=== PATIENT | male | born 1960 ===

== ENCOUNTER 2016-07-31 00:49 | Inpatient (IN) | payer MEDICAID ==
[~2016-07-31] VITALS: Ht 177.8 cm; Wt 90.7 kg
[2016-07-31] MEDS ORDERED: ASPIRIN 81 MG CHEW TAB ONE (01:23)
[2016-07-31] MEDS ORDERED: ACETAMINOPHEN 325 MG TAB PO PRN (03:55)
[2016-07-31] MEDS ORDERED: SALINE FLUSH 10 ML FLUSH PRN (03:55)
[2016-07-31 05:25] VITALS: BMI 28.0
[2016-07-31] MEDS: SODIUM CHLORIDE 0.9% FLUSH BAG 500 ML IV SCH (05:26)
[2016-07-31 05:48] VITALS: BP_SYST 121; RESP 20; TEMP 98.2
[2016-07-31 05:49] VITALS: Ht 177.8 cm; Wt 90.7 kg
[2016-07-31] MEDS: SODIUM CHLORIDE 0.9% 1,000 ML IV SCH ×2 (06:11→22:32)
[2016-07-31 07:49] VITALS: BP_SYST 135; RESP 18; TEMP 97.8
[2016-07-31] MEDS: SALINE FLUSH 10 ML FLUSH SCH ×2 (08:00→19:29)
[2016-07-31] MEDS: Aspirin 325 MG TAB PO SCH (09:29)
[2016-07-31] MEDS: ENOXAPARIN 40 MG/0.4 ML SYR SUBQ SCH (09:30)
[2016-07-31 11:18] VITALS: BP_SYST 131; RESP 18; TEMP 97.7
[2016-07-31 16:06] VITALS: BP_SYST 136; RESP 18; TEMP 97.8
[2016-07-31 19:56] VITALS: BP_SYST 111; RESP 18; TEMP 98.2
[2016-07-31] MEDS: Atorvastatin 20 MG TAB PO SCH (21:00)
[2016-08-01] VITALS (7 sets, daily range): BP systolic 115–137; RESP 18; TEMP 97.3–98.4
[2016-08-01] MEDS: SODIUM CHLORIDE 0.9% FLUSH BAG 500 ML IV SCH (05:07)
[2016-08-01] MEDS: Aspirin 325 MG TAB PO SCH (09:05)
[2016-08-01] MEDS: ENOXAPARIN 40 MG/0.4 ML SYR SUBQ SCH (09:05)
[2016-08-01] MEDS: SALINE FLUSH 10 ML FLUSH SCH ×2 (09:06→19:44)
[2016-08-01] MEDS: Atorvastatin 20 MG TAB PO SCH (21:00)
[2016-08-02 03:31] VITALS: BP_SYST 119; RESP 18; TEMP 97.6
[2016-08-02] MEDS: SODIUM CHLORIDE 0.9% FLUSH BAG 500 ML IV SCH (05:18)
[2016-08-02 07:26] VITALS: BP_SYST 123; RESP 18; TEMP 98.2
[2016-08-02] MEDS: Aspirin 325 MG TAB PO SCH (09:03)
[2016-08-02] MEDS: ENOXAPARIN 40 MG/0.4 ML SYR SUBQ SCH (09:04)
[2016-08-02] MEDS: SALINE FLUSH 10 ML FLUSH SCH ×2 (09:04→19:33)
[2016-08-02 11:12] VITALS: BP_SYST 107; RESP 18; TEMP 97.5
[2016-08-02 15:13] VITALS: BP_SYST 121; RESP 18; TEMP 98.7
[2016-08-02] MEDS ORDERED: OPTIRAY 350 100 ML VIAL HMH IV ONE (16:10)
[2016-08-02 19:29] VITALS: BP_SYST 125; RESP 20; TEMP 97.5
[2016-08-02] MEDS: Atorvastatin 20 MG TAB PO SCH (21:00)
[2016-08-02] MEDS: LEVETIRACETAM 500 MG TAB PO SCH (22:45)
[2016-08-02 22:53] VITALS: BP_SYST 132; RESP 16; TEMP 98.3
[2016-08-03 03:36] VITALS: BP_SYST 123; RESP 18; TEMP 97.9
[2016-08-03] MEDS: SODIUM CHLORIDE 0.9% FLUSH BAG 500 ML IV SCH (06:00)
[2016-08-03] MEDS: SALINE FLUSH 10 ML FLUSH SCH (08:07)
[2016-08-03] MEDS: ENOXAPARIN 40 MG/0.4 ML SYR SUBQ SCH (08:07)
[2016-08-03] MEDS: Aspirin 325 MG TAB PO SCH (08:07)
[2016-08-03] MEDS: LEVETIRACETAM 500 MG TAB PO SCH (08:08)
[2016-08-03 08:38] VITALS: BP_SYST 115; RESP 18; TEMP 97.6
[2016-08-03 12:09] VITALS: BP_SYST 134; RESP 19; TEMP 98
[2016-08-03 13:16] VITALS: BP_SYST 134; RESP 19; TEMP 98
== END 2016-08-03 14:21 | disposition home or self-care (01) | DRG 69 ==
LOC: ER 00:49 → EMR 03:54 → ENPENDDIS 03:54 → PCU 05:21
PROVIDERS: ADMIT Family Medicine; ATTEND Family Medicine
DX: G45.9 Transient cerebral ischemic attack, unspecified (principal); I10 Essential (primary) hypertension; G40.109 Localization-related (focal) (partial) symptomatic epilepsy and epileptic syndromes with simple partial seizures, not intractable, without status epilepticus; Z86.73 Personal history of transient ischemic attack (TIA), and cerebral infarction without residual deficits; E78.5 Hyperlipidemia, unspecified; R73.9 Hyperglycemia, unspecified; Z87.891 Personal history of nicotine dependence
CPT/HCPCS: 36415; 70450; 70496; 70498; 70551; 71010; 80047; 80048; 80053; 80061; 81001; 81003; 82553; 82947; 84484; 85014; 85025; 85384; 85610; 85730; 93005; 93306; 93880; 95819; 99226; 99233; 99239